=== PATIENT | female | born 1975 | race Caucasian/White ===

== ENCOUNTER 2022-12-26 11:42 | Emergency (ER) | payer OTHER ==
[~2022-12-26] VITALS: Ht 157.5 cm; Wt 36.3 kg
[2022-12-26] MEDS ORDERED: TDAP [DIPH/PERTUSSIS/TET] 0.5 ML VIAL IM ONE ×2 (13:00→13:01)
[2022-12-26] MEDS ORDERED: LIDOCAINE HCL/PF 1% 30 ML VIAL TP ONE (13:00)
[2022-12-26] MEDS ORDERED: LIDOCAINE MPF 1%-EPI 1:200,000 30 ML VIAL IJ ONE (13:07)
[2022-12-26] MEDS ORDERED: LIDOCAINE 2% 50 ML MDV IJ ONE (14:24)
[2022-12-26 15:49] VITALS: BP 148/90; TEMP 98; O2SAT 100
== END 2022-12-26 15:50 | disposition home or self-care (01) ==
LOC: ER 11:54
DX: S01.311A Laceration without foreign body of right ear, initial encounter (principal); W26.8XXA Contact with other sharp object(s), not elsewhere classified, initial encounter; Y93.89 Activity, other specified; Y92.89 Other specified places as the place of occurrence of the external cause; Y99.8 Other external cause status
CPT/HCPCS: 12013; 90471; 90715; 99283; A6403; J3490

== ENCOUNTER 2023-01-02 11:15 | Emergency (ER) | payer OTHER ==
[~2023-01-02] VITALS: Ht 165.1 cm; Wt 79.8 kg
[2023-01-02 11:26] VITALS: BP 169/93; TEMP 98; O2SAT 100
== END 2023-01-02 11:55 | disposition home or self-care (01) ==
LOC: ER 11:16
DX: Z48.02 Encounter for removal of sutures (principal)

== ENCOUNTER 2023-01-10 18:32 | Emergency (ER) | payer OTHER ==
[~2023-01-10] VITALS: Ht 162.6 cm; Wt 68.0 kg
[2023-01-10 18:46] VITALS: BP 147/94; TEMP 98.2; O2SAT 100
== END 2023-01-10 20:40 | disposition home or self-care (01) ==
LOC: ER 18:35
DX: Z48.02 Encounter for removal of sutures (principal)